=== PATIENT | female | born 1985 | race Caucasian/White ===

== ENCOUNTER → 2017-10-15 | Outpatient (REF) | payer OTHER ==
[2017-10-17 14:18] LABS: HPV HYBRID CAPTURE II Negative (Negative)
== END ==
LOC: M LAB REF 17:54
DX: Z12.4 Encounter for screening for malignant neoplasm of cervix (principal)

== ENCOUNTER → 2018-10-30 | Outpatient (CLI) | payer OTHER ==
[~2018-10-30] MED LIST: IBUP-1114 PO; MAPA500T2 PO; prenatal vitamins PO
--- NOTE | 2018-10-30 14:20 | REP ---
OBSTETRIC SONOGRAPHY: HISTORY: Supervision of for anatomy. FINDINGS: Scanning through the gravid uterus demonstrates a viable single intrauterine gestation in a breech lie. motion was observed and heart rate is recorded at 141 beats per minute. A posterior grade 1 placenta is seen without evidence of previa or abruption. Amniotic fluid is subjectively normal. Closed cervical length measures 5.3 cm viewed both transabdominally and transvaginally. No extrauterine abnormalities observed. There is a complete placenta previa with a posterior placenta covering the internal cervical os. No evidence of abruption. No anomaly is seen. nose and lips are seen but facial profile is less than optimally seen. Similarly, less than optimal visualization of the heart was achieved. The following additional anatomic structures are identified and felt to be unremarkable: cranium, choroid plexus, cavum, cerebellum posterior fossa, lungs, diaphragm, left-sided stomach, abdominal wall cord insertion, three-vessel umbilical cord, kidneys and bladder, spine, upper and lower extremities. Biometry Chart: BPD 3.9 cm = 17 weeks 6 days HC 14.6 cm = 17 weeks 5 days AC 12.7 cm = 18 weeks 2 days FL 2.6 cm = 17 weeks 5 days HL 2.7 cm = 18 weeks 4 days CD 1.8 cm = 17 weeks 6 days HC/AC ratio normal 1.15 Cephalic index normal 0.74. Estimated weight 219 grams, 0 pounds 7 ounces, 45th percentile for 18 weeks 0 days. IMPRESSION: Viable single intrauterine gestation at 18 weeks 0 days by today's composite sonographic criteria. GEOVANNA by today's sonography April 02, 2019. anatomic survey less than complete. There is evidence of a complete posterior placenta previa at this juncture. Followup recommended. Electronically Signed by Ronnie Barrow MD 10/30/2018 02:27 P
== END ==
LOC: M RAD 10:01
PROVIDERS: ATTEND Advanced Practice Midwife
DX: Z36.89 Encounter for other specified antenatal screening (principal); Z3A.18 18 weeks gestation of pregnancy; O44.02 Complete placenta previa NOS or without hemorrhage, second trimester

== ENCOUNTER → 2019-03-11 | Outpatient (REF) | payer OTHER | LOC: M LAB REF 17:22 | PROVIDERS: ATTEND Advanced Practice Midwife | DX: Z34.83 Encounter for supervision of other normal pregnancy, third trimester (principal) ==

== ENCOUNTER → 2019-03-11 | Outpatient (CLI) | payer OTHER | LOC: M SMT 14:59 | PROVIDERS: ATTEND Advanced Practice Midwife | DX: Z36.89 Encounter for other specified antenatal screening (principal) ==

== ENCOUNTER 2019-04-03 18:57 | Inpatient (IN) | payer OTHER ==
[~2019-04-03] VITALS: Ht 167.6 cm; Wt 118.1 kg
[2019-04-03 19:16] VITALS: BP 135/80
[2019-04-03] MEDS ORDERED: LACTATED RINGER'S 1000 ML IV STA (19:50)
[2019-04-03] MEDS: miSOPROStol 50 MCG 1/2 TAB (S0191) PO SCH (20:43)
[2019-04-03 20:44] LABS: HEMATOCRIT 36.9 % (36.0-47.0); MEAN CORPUSCULAR HEMOGLOBIN 32.5 pg (27.0-33.0); MEAN CORPUSCULAR HGB CONC 35.2 g/dl (32.0-36.5); MEAN CORPUSCULAR VOLUME 92.3 fl (80.0-96.0); PLATELET COUNT, AUTOMATED 181 10^3/uL (150-450); WHITE BLOOD COUNT 8.6 10^3/uL (4.0-10.0)
[2019-04-03] MEDS ORDERED: hydrOXYzine 50 MG TAB PO PRN (21:00)
[2019-04-03 21:05] VITALS: BP 121/64
--- NOTE | 2019-04-03 21:05 | HPEPDOC ---
Obstetrical History & Physical General Date of Admission Apr 03, 2019 at 18:57 History of Present Illness Chief Complaint: Induction of labor Information Provided By: Patient Age: 34 : 2 Term: 1 Pre-term: 0 Abortions: 0 Livin Care Care: Good Care Dating Final EDC: Mar 29, 2019 Final EDC by: 1st trimester (US) EGA at Admission: 40 (+5) Antepartum Course Height (inches): 66 Pre- weight (lbs.): 221 Admission Weight (lbs.): 259 Past Medical History Past Obstetrical History : Past Obstetrical History: Primgravida (2015) Type of Delivery: Spontaneous Vaginal Del. 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 pertinent history Past Medical History Surgical History: Other (eye) Family History Significant Family History: Cancer (breast), Heart disease, Hypertension, Other (thyroid) Social History Marital Status: Family situation: Spouse/partner home Psychosocial History: No pertinent psych hx * Smoker: former Smoker Alcohol: Denies Drugs: denies Abuse Violence Screening Have you been hit/kicked/slapp: No Have you been sexually assault: No Imunizations Tdap status: current Allergies Coded Allergies: Penicillins (Verified Allergy, Unknown, 04/03/19) Medications Scheduled [ vitamins] , 1 TAB PO DAILY Physical Examination Physical Examination GENERAL: Alert and oriented times three. BREAST: . ABDOMEN: Gravid and non-tender to touch. FETUS: Is vertex (VTX) by sterile vaginal examination (SVE), fetus is vertex (VTX) by Edgar. HEART RATE: Regular rate and rhythm. LUNGS: Clear to auscultation (CTA). EXTREMITIES: No edema. No clonus. Deep tendon reflexes (DTRs) + 2. Laboratory Data 24H LABS Laboratory Tests 2 04/03/19 20:18: Nucleated Red Blood Cells % (auto) 0.0 CBC/BMP Laboratory Tests 04/03/19 20:18 Red Blood Count 4.00, Mean Corpuscular Volume 92.3, Mean Corpuscular Hemoglobin 32.5, Mean Corpuscular Hemoglobin Concent 35.2, Red Cell Distribution Width 12.8 Pertinent Laboratoy Data Blood Type: B+ RBC Antibody Screen: Negative HIV: Negative Hepatitis B: Negative Hepatitis C: Negative Rapid Plasma Reagin: Nonreactive Rubella: Immune Chlamydia/Gonorrhea: Negative Group B Streptococcus: Negative Quad Screen Test: Declined Glucose Tolerance Test: 136 (86/153/100/52) Anatomy Ultrasound Ultrasound Date: Oct 30, 2018 Placenta Location: Posterior Normal Anatomy: Yes Placenta Previa: No (low lying) Estimated Weight (grams): 219 Other Ultrasounds 09/09/18 dating 11w2d 11/27/18 low lying placenta,496gm/36% 01/29/19 placenta low lying, 2cm from os, 1733gm/41% 02/12/19 Lower margin placenta 4cm from internal os 03/11/19 Vertex 03/19/19 3350gm/51% Steroid Therapy Steroid Therapy: No Vaginal Examination Dilation: Fingertip Effacement: 50% Station: -3 Cervical Consistency: Medium Cervical Position: Posterior Presentation: Cephalic presentation Assessment Heart Rate (FHR): 135 Variability: Moderate Accelerations: Positive Decelerations: None Tocometer Contractions: No Assessment/Plan Assessment Nicole Orourke is a 34-year-old (G)2 para (P)1-0-0-1 at 40+5 weeks by 11-week ultrasound. Presents to Labor and Delivery (L&D) for induction of labor. History significant for failed 41wk IOL 2015 with subsequent 42 wk IOL for vaginal delivery Plan Admit and orient per consult Dr Angeles Refractive Surgeon and consent. Diet: regular. Group B Streptococcus (GBS) negative. Labs and intravenous (IV) per unit protocol. Counseled on misoprostol, Pitocin and induction of labor (IOL). Lactated Ringers (LR): Bolus 500 mL, then saline lock. Cooks catheter placed, inflated with 60/40ml NS Planning epidural Anticipate normal spontaneous delivery () C-S as appropriate. Darlene Mcbride CNM Apr 03, 2019 21:04
[2019-04-03 22:51] VITALS: BP 117/67
[2019-04-03 23:32] VITALS: BP 117/62
[2019-04-04] VITALS (38 sets, daily range): BP systolic 89–154; BP diastolic 50–90
[2019-04-04] MEDS: miSOPROStol 50 MCG 1/2 TAB (S0191) PO SCH ×2 (00:31→05:38)
[2019-04-04] MEDS ORDERED: OXYTOCIN DRIP 30 UNITS in IV 1 EA IV SCH (08:30)
[2019-04-04] MEDS ORDERED: LR 1,000 ML IV SCH (08:30)
[2019-04-04] MEDS ORDERED: FENTANYL 2MCG/ML ROPIVACAINE 0.2% IN 0.9% NACL 100ML IVBAG As Ordered ONE (13:51)
[2019-04-04] MEDS ORDERED: LACTATED RINGER'S 1000 ML IV PRN (15:15)
[2019-04-04] MEDS ORDERED: EPIDURAL COMMENT XX SCH (15:15)
[2019-04-04] MEDS ORDERED: NALOXONE INJ 0.4 MG/1 ML VIAL (J2310) IV PRN (15:15)
[2019-04-04] MEDS ORDERED: diphenhydrAMINE INJ 50MG/ML VIAL (J1200) IV PRN (15:15)
[2019-04-04] MEDS ORDERED: REFRIGERATOR IV KEYS XX PRN (15:15)
[2019-04-04] MEDS ORDERED: ePHEDrine SULFATE 25 MG/5 ML(5MG/ML) SYRINGE IV PRN (15:15)
[2019-04-04] MEDS ORDERED: ONDANSETRON 4MG/2ML VIAL (J2405) IV PRN ×2 (15:15→19:00)
[2019-04-04] MEDS ORDERED: EPIDURAL/PCA KEYS XX PRN (15:15)
[2019-04-04] MEDS ORDERED: FENTANYL/ROPIVACAINE/NACL BAG 100 ML EPIDURAL SCH (15:15)
[2019-04-04] MEDS ORDERED: RHOGAM 300 MCG (1500 IU) INJ (J2790) IM SCH (19:00)
[2019-04-04] MEDS ORDERED: OXYTOCIN DRIP 30 UNITS in IV 1 EA IV ONE (19:00)
[2019-04-04] MEDS ORDERED: MEASLES,MUMPS,RUBELLA VACCINE INJ (MMR-II) (90707) SC SCH (19:00)
[2019-04-04] MEDS ORDERED: IBUPROFEN 600 MG TAB PO PRN (19:00)
[2019-04-04] MEDS ORDERED: DIBUCAINE 1% OINTMENT 30GM TOP PRN (19:00)
[2019-04-04] MEDS ORDERED: ACETAMINOPHEN 500 MG TAB PO PRN (19:00)
[2019-04-04] MEDS ORDERED: ACETAMINOPHEN TAB 650MG DOSE (2X325MG) PO PRN (19:00)
[2019-04-04] MEDS ORDERED: IBUPROFEN 800 MG TAB PO PRN (19:00)
[2019-04-04] MEDS ORDERED: DOCUSATE SODIUM 100 MG CAP PO PRN (19:00)
[2019-04-04] MEDS ORDERED: METHYLERGONOVINE MALEATE 0.2 MG TAB PO PRN (19:00)
[2019-04-05 05:10] VITALS: BP 128/76
[2019-04-05] MEDS: PRENATAL VITAMINS CHEWABLE TABLET PO SCH (09:14)
--- NOTE | 2019-04-05 12:51 | DN ---
DATE OF DELIVERY: 04/04/2019 PREDELIVERY DIAGNOSIS: 39 weeks, induction. POSTDELIVERY DIAGNOSIS: Delivered. PROCEDURE: Spontaneous vaginal delivery. 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 ESTIMATED BLOOD LOSS: 300 mL. FINDINGS: 8-pound 0-ounce male, scores 8 and 9. DELIVERY SUMMARY: After a short second stage, the patient had spontaneous delivery of an 8-pound 0-ounce male infant, scores 8 and 9, under epidural anesthesia. There was no nuchal cord. The shoulders delivered with ease. The infant was handed to the mother and cried immediately. The cord was doubly clamped and cut. The placenta delivered spontaneously and appeared to be intact. There were no vaginal lacerations present. The patient received intravenous (IV) Pitocin immediately after delivery of the placenta. Sponge counts were correct. MTDD
[2019-04-05 18:00] VITALS: BP 138/78
[2019-04-06 05:51] VITALS: BP 129/71
[2019-04-06] MEDS: PRENATAL VITAMINS CHEWABLE TABLET PO SCH (09:09)
== END 2019-04-06 13:45 | disposition home or self-care (01) | DRG 807 ==
LOC: M LDI 18:57 → M OBS 04-04 20:15
PROVIDERS: ADMIT Advanced Practice Midwife; ATTEND Specialist
PROC: 3E0P7GC Introduction of Other Therapeutic Substance into Female Reproductive, Via Natural or Artificial Opening (ICD-10-PCS; 2019-04-03)
PROC: 10E0XZZ Delivery of Products of Conception, External Approach (ICD-10-PCS; principal; 2019-04-04)
DX: O48.0 Post-term pregnancy (principal); Z37.0 Single live birth; Z3A.40 40 weeks gestation of pregnancy